=== PATIENT | female | born 1950 | race Caucasian/White ===

== ENCOUNTER 2020-04-26 13:24 | Emergency (ER) | payer MEDICARE, OTHER ==
--- NOTE | 2020-04-26 13:32 | ED Physician Documentation ---
<Umberto Diaz - Last Filed: 04/26/20 13:32> PD HPI FEMALE - Stated complaint Stated Complaint: FEMALE - History obtained from History obtained from: Patient PD PAST MEDICAL HISTORY - Past Medical History Cardiovascular: Murmur Endocrine/Autoimmune: None GI: GERD, Other : None HEENT: Other Psych: Depression, Anxiety Musculoskeletal: Fibromyalgia Derm: None - Present Medications Home Medications: Ambulatory Orders Medication Instructions Recorded Confirmed Fexofenadine HCl [Safia] 180 mg PO TID 09/22/13 04/26/20 Hydrocodone/Acetaminophen 1 - 2 each PO Q6H PRN #14 tablet 04/26/20 [Hydrocodon-Acetaminophen 5-325] Ondansetron [Ondansetron Odt] 8 mg PO Q8HR PRN 04/26/20 04/26/20 Zolpidem Tartrate [Ambien] 10 mg PO DAILY PM PRN 04/26/20 04/26/20 - Allergies Allergies/Adverse Reactions: Allergies Allergy/AdvReac Type Severity Reaction Status Date / Time Sulfa (Sulfonamide Allergy Intermediate Rash, Verified 04/26/20 13:29 Antibiotics) swelling, SOB ampicillin Allergy Rash, Verified 04/26/20 13:29 sweats aspirin Allergy swelling, Verified 04/26/20 13:29 shakes bacitracin Allergy Blisters, Verified 04/26/20 13:29 [From Neosporin pain (qzd-ptb-[id number])] bacitracin zinc * Allergy Blisters, Verified 04/26/20 13:29 [From Neosporin pain (foq-kci-tojte)] neomycin sulfate * Allergy Blisters, Verified 04/26/20 13:29 [From Neosporin pain (gws-znd-xykil)] polymyxin B Allergy Blisters, Verified 04/26/20 13:29 [From Neosporin pain (bxa-yke-krkkc)] amoxicillin [Amoxicillin] AdvReac Mild Nausea Verified 04/26/20 13:29 alcohol AdvReac sweats, Verified 04/26/20 13:29 shakes caffeine AdvReac rash, Verified 04/26/20 13:29 burning soy AdvReac rash, Verified 04/26/20 13:29 burning citrus AdvReac Intermediate rash, Uncoded 09/23/13 08:38 burning tape AdvReac Rash Uncoded 09/22/13 14:30 Departure - Departure Disposition: 01 Home, Self Care Clinical Impression: Pelvic floor dysfunction, Uterine prolapse, Bladder prolapse Condition: Good Instructions: Pelvic Organ Prolapse Follow-Up: [facility] [Provider Group] - Within 3 Days Prescriptions: Hydrocodone/Acetaminophen [Hydrocodon-Acetaminophen 5-325] 1 - 2 each PO Q6H PRN #14 tablet PRN Reason: pain Comments: I spoke with Dr. Landry rod, she states that you can use Replens, this is an cwei-iwh-kjchspa vaginal lubricant and that this will help with the discomfort. We will prescribe you pain medication as well. She recommends that you follow-up in clinic to be fitted for a pessary and to discuss possible surgical treatment. Return if you worsen Do not drink alcohol or drive while on narcotic pain medicine. Note that many narcotic pain relievers also contain tylenol/acetaminophen. Please ensure that your total dose of acetaminophen from all sources does not exceed 3 grams (3000mg) per day. You may constipated on this medication, take a stool softener such as "Colace" twice a day while you are on it. Also recommend a omez-cvf-gslqlni laxative such as senna or MiraLAX any day that you do not have a bowel movement. If you received narcotic pain medication in the emergency department, do not drive or operate machinery for the next 24 hours. Discharge Date/Time: 04/26/20 18:02 <Renny Berumen - Last Filed: 04/26/20 22:06> PD HPI FEMALE - History obtained from History obtained from: Patient - History of Present Illness Timing - onset: How many weeks ago Timing - duration: Weeks Timing - details: Gradual onset Pain level max: 4 Pain level max: 4 Associated symptoms: Vaginal pain - Additional information Additional information: 70-year-old female presents to the emergency department stating that she has had "something coming out of her vagina" for the past several weeks. She states that now tian and is worse sitting. No dysuria. She does feel like sometimes it is hard to empty her bladder. No vaginal bleeding. Has not seen her doctor for this. She states it feels like there is a finger coming out of her vagina. Review of Systems Constitutional: denies: Fever, Chills GI: denies: Vomiting, Diarrhea Skin: denies: Rash Musculoskeletal: denies: Neck pain, Back pain Neurologic: denies: Headache PD PAST MEDICAL HISTORY - Past Medical History Past Medical History: Yes Cardiovascular: Murmur Endocrine/Autoimmune: None GI: GERD : None Psych: Depression, Anxiety Musculoskeletal: Fibromyalgia Derm: None - Living Situation Living Situation: reports: With family Living Arrangement: reports: At home - Social History Does the pt have substance abuse?: No - Family History Family history: reports: Non contributory PD ED PE NORMAL - Vitals Vital signs reviewed: Yes - General General: Alert and oriented X 3, No acute distress - HEENT HEENT: Moist mucous membranes - Neck Neck: Supple, no meningeal sign - Female Female : Assistant Front End Manager present (Zara FUCHS), Other (low cervix, prolapses with standing. bladder appears to prolapse as well.) - Back Back: No CVA TTP - Derm Derm: Warm and dry - Neuro Neuro: Alert and oriented X 3 - Psych Psych: Normal mood, Normal affect Results - Vitals Vitals: Vital Signs - 24 hr 04/26/20 04/26/20 04/26/20 13:30 15:51 17:48 Temperature 37.4 C 37 C 37.1 C Heart Rate 126 H 100 75 Respiratory 20 18 16 Rate Blood Pressure 139/66 H 141/81 H O2 Saturation 100 98 99 Oxygen O2 Source Room air - Labs Labs: Laboratory Tests 04/26/20 17:40 Urine Color YELLOW Urine Clarity N Urine pH 6.0 Ur Specific [place] <=1.005 Urine Protein NEGATIVE Urine Glucose (UA) NEGATIVE Urine Ketones NEGATIVE Urine Occult Blood TRACE-INTA Urine Nitrite NEGATIVE Urine Bilirubin NEGATIVE Urine Urobilinogen 0.2 (NORMAL) Ur Leukocyte Esterase NEGATIVE Ur Microscopic Review NOT INDICATED Urine Culture Comments NOT INDICATED PD MEDICAL DECISION MAKING - ED course Complexity details: reviewed results, re-evaluated patient, considered differential, d/w patient, d/w family, d/w senior billing consultant ED course: Patient with a uterine prolapse. Likely bladder prolapse as well. No acute findings on urinalysis. Discussed the case with Dr. Alatorre, gynecology on- call who recommends follow-up in the clinic for a pessary. We will prescribe some pain medication for home and encouraged her to use vaginal lubrication so the cervix does not become dried out and painful. Patient counseled regarding signs and symptoms for which I believe and urgent re-evaluation would be necessary. Patient with good understanding of and agreement to plan and is comfortable going home at this time This document was made in part using voice recognition software. While efforts are made to proofread this document, sound alike and grammatical errors may occur.
[2020-04-26 15:51] VITALS: BP 141/81
[2020-04-26] MEDS ORDERED: HYDROcod/ACETAM 5/325 MG TABLET PO STA (17:35)
[2020-04-26 17:50] LABS: BILIRUBIN,URINE NEGATIVE (NEGATIVE); GLUCOSE, URINE (UA) NEGATIVE (NEGATIVE); KETONES,URINE (UA) NEGATIVE (NEGATIVE); LEUKOCYTE ESTERASE, URINE NEGATIVE (NEGATIVE); NITRITE,URINE NEGATIVE (NEGATIVE); OCCULT BLOOD,URINE TRACE-INTA (NEGATIVE); PROTEIN,URINE NEGATIVE (NEGATIVE); UROBILINOGEN,URINE 0.2 (NORMAL) E.U./dL (NORMAL)
[2020-04-26 17:53] LABS: CLARITY,URINE N (CLEAR)
== END 2020-04-26 18:02 | disposition home or self-care (01) ==
LOC: ED 13:24
DX: N81.84 Pelvic muscle wasting (principal); N81.4 Uterovaginal prolapse, unspecified
CPT/HCPCS: 81003; 99283; 99284; A9270; 81001; 87086

== ENCOUNTER 2020-06-23 12:59 | Outpatient (CLI) | payer MEDICARE, OTHER ==
--- NOTE | 2020-06-24 06:36 | Mammography Report ---
BILATERAL DIGITAL SCREENING MAMMOGRAM 3D/2D: 06/23/2020 CLINICAL: Routine screening. Comparison is made to exams dated: 12/30/2013 mammogram, 09/23/2013 localization, 09/23/2013 mammogra m, 01/14/2013 mammogram, 01/20/2013 mammogram, and 12/19/2012 mammogram - [facility]. Th e tissue of both breasts is heterogeneously dense. This may lower the sensitivity of mammography. There is an oval focal asymmetry in the right breast central to the nipple posterior depth. No other significant masses, calcifications, or other findings are seen in either breast. IMPRESSION: INCOMPLETE: NEEDS ADDITIONAL IMAGING EVALUATION The oval focal asymmetry in the right breast likely represents a cyst and is indeterminate. Addition al views with possible ultrasound are recommended. This exam was interpreted at Station ID: [id number]. NOTE: For mammograms, a report in lay terms will be sent to the patient. Approximately 15% of breast malignancies will not be visualized mammographically. In the management of a palpable breast mass, a negative mammogram must not discourage biopsy of a clinically suspicious lesion. Electronically Signed By: Albertina Nuñez M.D. lk/:06/23/2020 14:12:41 ACR BI-RADS Category 0: Incomplete 3340F PARENCHYMAL PATTERN: (D) - The breast(s) demonstrate(s) heterogeneously dense fibroglandular parchristianne rogel. BI-RADS CATEGORY: (0) - 0 Mammo and [place] [id number] Immediate follow-up LATERALITY: (B)
== END 2020-06-23 13:00 | disposition home or self-care (01) ==
LOC: DI 12:59
PROVIDERS: ATTEND Obstetrics & Gynecology
DX: Z12.31 Encounter for screening mammogram for malignant neoplasm of breast (principal); R92.8 Other abnormal and inconclusive findings on diagnostic imaging of breast
CPT/HCPCS: 77063; 77067

== ENCOUNTER 2020-06-23 13:00 | Outpatient (CLI) | payer MEDICARE, OTHER ==
--- NOTE | 2020-06-23 16:51 | DEXA Report ---
PROCEDURE: Dexa Spine and/or Hip INDICATIONS: POSTMENOPAUSAL TECHNIQUE: Dual energy x-ray absorptiometry (DXA) was performed on a Klinq System. Regions measur ed are the AP Spine, femoral neck, and if needed forearm. COMPARISON: None. FINDINGS: Lumbar Spine: Bone Mineral Density 0.978 g/cm/cm,T score -1.7, osteopenia Left Hip: Bone Mineral Density 0.687 g/cm/cm,T score -2.5, osteoporosis Left Femoral Neck: Bone Mineral Density 669 g/cm/cm, T score -2.7, osteoporosis (T score greater or equal to -1.0: NORMAL) (T score from -1.1 to -2.4: OSTEOPENIA) (T score less than or equal to -2.5 to: OSTEOPOROSIS) Impression: Osteoporosis. Patients with diagnosis of osteoporosis or osteopenia should have regular bone mineral density assess ment. For those eligible for Medicare, routine testing is allowed once every 2 years. Testing frequ ency can be increased for patients who have rapidly progressing disease or for those who are receivin g medical therapy to restore bone mass. Reviewed by: Denise Grant MD, PhD on 06/23/2020 4:50 PM PDT Approved by: Denise Grant MD, PhD on 06/23/2020 4:50 PM PDT Station ID: [id number]
== END 2020-06-23 13:01 | disposition home or self-care (01) ==
LOC: DI 13:00
PROVIDERS: ATTEND Obstetrics & Gynecology
DX: M81.0 Age-related osteoporosis without current pathological fracture (principal)
CPT/HCPCS: 77080

== ENCOUNTER 2022-10-23 08:00 | Outpatient (CLI) | payer MEDICARE, OTHER ==
[2022-10-23 16:51] LABS: BASOPHILS # (AUTO) 0.1 10^3/uL (0.0-0.1); BASOPHILS % (AUTO) 0.7 %; EOSINOPHILS % (AUTO) 0.2 %; HCT - HEMATOCRIT 41.4 % (37.0-47.0); HGB - HEMOGLOBIN 13.3 g/dL (12.0-16.0); LYMPHOCYTES # (AUTO) 3.4 10^3/uL (1.5-3.5); LYMPHOCYTES % (AUTO) 40.6 %; MEAN CORPUSCULAR HEMOGLOBIN 29.6 pg (27.0-31.0); MEAN CORPUSCULAR HGB CONC 32.1 g/dL (32.0-36.0); MEAN CORPUSCULAR VOLUME 92.2 fL (81.0-99.0); MONOCYTES # (AUTO) 0.4 10^3/uL (0.0-1.0); MONOCYTES % (AUTO) 4.9 %; NEUTROPHILS # (AUTO) 4.4 10^3/uL (1.5-6.6); NEUTROPHILS % (AUTO) 53.4 %; PLT - PLATELET COUNT 245 10^3/uL (130-450); RED BLOOD COUNT 4.49 10^6/uL (4.20-5.40); RED CELL DISTRIBUTION WIDTH 13.4 % (12.0-15.0); WHITE BLOOD COUNT 8.3 x10^3/uL (4.8-10.8)
[2022-10-23 17:02] LABS: ALBUMIN/GLOBULIN RATIO 1.1 (1.0-2.2); ALKALINE PHOSPHATASE 64 IU/L (42-121); ALT ALANINE AMINOTRANSFERASE 13 IU/L (10-60); AST ASPARTATE AMINOTRANSFERASE 18 IU/L (10-42); BILIRUBIN,TOTAL 0.6 mg/dL (0.2-1.0); BUN - BLOOD UREA NITROGEN 16 mg/dL (6-20); CALCIUM 9.5 mg/dL (8.5-10.3); CARBON DIOXIDE - CO2 26 mmol/L (21-32); CHLORIDE 101 mmol/L (101-111); CHOL/HDL RATIO 3.1 (<4.4); CHOLESTEROL 217 mg/dL; CREATININE 0.7 mg/dL (0.4-1.0); GFR - MDRD 82 (>89); GLUCOSE 106 mg/dL (70-100); HDL CHOLESTEROL 71 mg/dL; LDL CHOLESTEROL,CALCULATED 126 mg/dL; LDL/HDL RATIO 1.8 (<4.4); SODIUM 136 mmol/L (135-145); TOTAL PROTEIN 7.7 g/dL (6.7-8.2); TRIGLYCERIDES 100 mg/dL; VLDL CHOLESTEROL 20 mg/dL
[2022-10-23 17:15] LABS: THYROID STIMULATING HORMONE 1.03 uIU/mL (0.34-5.60)
[2022-10-24 05:10] LABS: HCV AB 0.1 s/co ratio (0.0-0.9)
[2022-10-24 21:10] LABS: ESTIMATED AVERAGE GLUCOSE 126 mg/dL (70-100)
== END 2022-10-23 23:59 | disposition home or self-care (01) ==
LOC: LAB.R 08:00
PROVIDERS: ATTEND Internal Medicine
DX: H35.30 Unspecified macular degeneration (principal); F41.9 Anxiety disorder, unspecified; H26.9 Unspecified cataract; G93.32 Myalgic encephalomyelitis/chronic fatigue syndrome; K59.00 Constipation, unspecified; K04.7 Periapical abscess without sinus; L98.9 Disorder of the skin and subcutaneous tissue, unspecified; M79.7 Fibromyalgia; K21.9 Gastro-esophageal reflux disease without esophagitis; G47.00 Insomnia, unspecified; K58.9 Irritable bowel syndrome, unspecified; J45.909 Unspecified asthma, uncomplicated; H33.20 Serous retinal detachment, unspecified eye; Z13.6 Encounter for screening for cardiovascular disorders; Z11.59 Encounter for screening for other viral diseases; Z79.899 Other long term (current) drug therapy; R73.01 Impaired fasting glucose
CPT/HCPCS: 80053; 80061; 82607; 83036; 83721; 84443; 85025; 86803

== ENCOUNTER 2022-11-27 10:36 | Outpatient (CLI) | payer MEDICARE, OTHER ==
--- NOTE | 2022-11-28 12:42 | Mammography Report ---
BILATERAL DIGITAL DIAGNOSTIC MAMMOGRAM 3D/2D: 11/27/2022 CLINICAL: Right breast cyst? Due for left. Comparison is made to exams dated: 06/23/2020 mammogram, 12/30/2013 mammogram, 09/23/2013 mammogram, an d 01/20/2013 mammogram - [facility]. There are scattered areas of fibroglandular density in both breasts (category b / 25%-50% glandular t issue). There is an oval focal asymmetry in the right breast at 6 o'clock middle depth. This is not signific antly changed. No other significant masses, calcifications, or other findings are seen in either breast. Post-operat bindu finding in the left breast. IMPRESSION: INCOMPLETE: NEEDS ADDITIONAL IMAGING EVALUATION The oval focal asymmetry in the right breast likely represents a cyst and is indeterminate. A targeted ultrasound is recommended and will immediately follow. Based on the Tyrer Cuzick model (a risk assessment model) the patients lifetime risk is 7.4% and her 10 year risk is 5.5%. According to the ACR, ACS, and NCCN guidelines, an annual breast MRI exam willie g with mammogram is recommended if the patients lifetime risk is 20% or greater. This exam was interpreted at Station ID: [id number]. NOTE: For mammograms, a report in lay terms will be sent to the patient. Approximately 15% of breast malignancies will not be visualized mammographically. In the management of a palpable breast mass, a negative mammogram must not discourage biopsy of a clinically suspicious lesion. Electronically Signed By: Axel Lloyd M.D. slc/:11/27/2022 11:31:47 ACR BI-RADS Category 0: Incomplete 3340F PARENCHYMAL PATTERN: (A) - The breast(s) demonstrate(s) scattered fibroglandular densities. BI-RADS CATEGORY: (0) - 0 Ultrasound [id number] Immediate follow-up LATERALITY: (R)
--- NOTE | 2022-11-28 12:43 | Ultrasound Report ---
LIMITED ULTRASOUND OF RIGHT BREAST: 11/27/2022 CLINICAL: Patient returns today to evaluate a focal asymmetry in the right breast. Comparison is made to exams dated: 11/27/2022 mammogram, 06/23/2020 mammogram, 12/30/2013 mammogram, 07/2013 mammogram, 01/20/2013 mammogram, and 01/14/2013 mammogram - [facility]. Color flow ultrasound of the right breast 6 o'clock region was performed. Puckett scale images of the r eal-time examination were reviewed. There is a 1.1 cm x 0.6 cm x 0.6 cm oval mass with a circumscribed margin in the right breast at 6 o' clock middle depth 6 cm from the nipple. This oval mass is hypoechoic. This abnormality is not sign ificantly changed and correlates with mammography findings. Color flow imaging demonstrates that the re is no vascularity present. IMPRESSION: PROBABLY BENIGN The 1.1 cm oval mass in the right breast resembles a complicated cyst or a fibroadenoma and is probab ly benign. A follow-up mammogram and an ultrasound in 6 months is recommended to demonstrate stability. Exam findings were conveyed to the patient. This exam was interpreted at Station ID: [id number]. Electronically Signed By: Axel Lloyd M.D. [facility] [place]:11/27/[place]22 12:25:07 Ultrasound BI-RADS: 3 Probably benign BI-RADS CATEGORY: (3) - 3 Mammo and [place] [id number] 6 month follow-up LATERALITY: (B)
== END 2022-11-27 10:37 | disposition home or self-care (01) ==
LOC: DI 10:36
PROVIDERS: ATTEND Internal Medicine
DX: R92.8 Other abnormal and inconclusive findings on diagnostic imaging of breast (principal)

== ENCOUNTER 2023-08-02 09:12 | Day surgery (SDC) | payer MEDICARE, OTHER ==
[~2023-08-02 09:12] MED LIST: CYCLOPENTOLATE 1% OPHTH DROPS 2 ML ONE; KETOROLAC 0.45% OPHTH DROPS ONE; PHENYLEPHRINE 2.5% OPHTH 2 ML DROPS ONE; PROPARACAINE 0.5% OPHTH DROPS 15 ML ONE
[2023-08-02] MEDS ORDERED: LACTATED RINGERS 1,000 ML IV ONE (09:16)
[2023-08-02 09:30] VITALS: O2SAT 98
--- NOTE | 2023-08-02 10:18 | ANESTHESIA ---
Pre-Anesthesia VS, & Labs - Diagnosis R cataract - Procedure R PhacIOL Vital Signs: Temp Pulse Resp BP Pulse Ox O2 Flow Rate 36.3 C L 102 H 16 141/86 H 98 08/02/23 09:27 08/02/23 09:27 08/02/23 09:27 08/02/23 09:27 08/02/23 09:27 Height: 5 ft 4 in Weight (kg): 65 kg Body Mass Index: 24.5 BMI Classification: Normal - NPO >8 hours - Is Patient ?: No Home Medications and Allergies Home Medications: Ambulatory Orders Albuterol Sulf [Ventolin Hfa Inhaler] 1 - 2 puffs INH Q4HR PRN 08/01/23 Fluticasone Propion/Salmeterol [Airduo Digihaler 232-14 Mcg] 1 each IH DAILY 08/01/23 Gabapentin [Neurontin] 300 mg PO HS 08/01/23 Fexofenadine HCl [Safia] 180 mg PO TID 09/22/13 Ondansetron [Ondansetron Odt] 8 mg PO Q8HR PRN 04/26/20 Albuterol Sulf [Ventolin Hfa Inhaler] 1 - 2 puffs INH Q4HR PRN 08/01/23 Fluticasone Propion/Salmeterol [Airduo Digihaler 232-14 Mcg] 1 each IH DAILY 08/01/23 Gabapentin [Neurontin] 300 mg PO HS 08/01/23 Allergies/Adverse Reactions: Allergies Allergy/AdvReac Type Severity Reaction Status Date / Time Sulfa (Sulfonamide Allergy Intermediate Rash, Verified 04/26/20 13:29 Antibiotics) swelling, SOB ampicillin Allergy Rash, Verified 04/26/20 13:29 sweats aspirin Allergy swelling, Verified 04/26/20 13:29 shakes bacitracin Allergy Blisters, Verified 04/26/20 13:29 [From Neosporin pain (klk-dsr-btunt)] bacitracin zinc * Allergy Blisters, Verified 04/26/20 13:29 [From Neosporin pain (woc-pwd-ufrdv)] neomycin sulfate * Allergy Blisters, Verified 04/26/20 13:29 [From Neosporin pain (rrf-jaq-cgsyf)] polymyxin B Allergy Blisters, Verified 04/26/20 13:29 [From Neosporin pain (cqm-odx-toasp)] amoxicillin [Amoxicillin] AdvReac Mild Nausea Verified 04/26/20 13:29 alcohol AdvReac sweats, Verified 04/26/20 13:29 shakes caffeine AdvReac rash, Verified 04/26/20 13:29 burning soy AdvReac rash, Verified 04/26/20 13:29 burning citrus AdvReac Intermediate rash, Uncoded 09/23/13 08:38 burning tape AdvReac Rash Uncoded 09/22/13 14:30 Anes History & Medical History - Anesthetic History Anesthesia Complications: reports: No previous complications Family history of Anesthesia Complications: Denies Family history of Malignant Hyperthermia: Denies - Medical History Cardiovascular: reports: Murmur Pulmonary: reports: Asthma Gastrointestinal: reports: GERD Urinary: reports: None Neuro: reports: None Musculoskeletal: reports: Fibromyalgia Endocrine/Autoimmune: reports: None Blood Disorders: reports: None Skin: reports: None Smoking Status: Former smoker Psychosocial: reports: Depression, Anxiety History of Cancer?: Yes (breast) - Surgical History Gynecologic: reports: Other Exam General: Alert, Oriented x3, Cooperative Dental: Poor dentition (very poor dentition. pt states "I only have 5 teeth left and they are all loose and about to come out") Mouth Openin Fingerbreadth Neck Mobility: Normal Mallampati classification: II Thyromental Distance: 4-6 cm Respiratory: Lungs clear Cardiovascular: Regular rate Plan Anesthesia Type: General (MAC with GA backup), MAC Consent for Procedure(s) Verified and Reviewed: Yes Code Status: Attempt Resuscitation ASA classification: 3-Severe systemic disease Is this case an emergency?: No
[2023-08-02] MEDS ORDERED: EPINEPHrine 1 MG/ML AMP ONE (10:28)
[2023-08-02] MEDS ORDERED: TRIAMCIN/MOXIFLOX OPHTHALMIC 0.6 ML VIAL IO ONE ×2 (10:28→10:46)
[2023-08-02] MEDS ORDERED: BRIMONIDINE 0.2% OPHTH DROPS 5 ML ONE (10:28)
[2023-08-02] MEDS ORDERED: MIDAZOLAM 2 MG/2 ML VIAL ONE (10:29)
[2023-08-02] MEDS ORDERED: fentaNYL 100 MCG/2 ML VIAL ONE (10:29)
[2023-08-02] MEDS ORDERED: BSS/LIDOCAINE/EPINEPHRINE 1 ML VIAL ONE (10:29)
[2023-08-02] MEDS ORDERED: TIMOLOL 0.5% OPHTH DROPS ONE (10:29)
[2023-08-02] MEDS ORDERED: LIDOCAINE-PF 2% 10 ML AMP SUBQ ONE (10:30)
[2023-08-02] MEDS ORDERED: BRIMONIDINE 0.2% OPHTH DROPS 5 ML OPTH ONE (10:45)
[2023-08-02] MEDS ORDERED: EPINEPHrine 1 MG/ML AMP IR ONE (10:46)
[2023-08-02] MEDS ORDERED: TIMOLOL 0.5% OPHTH DROPS OPTH ONE (10:46)
[2023-08-02] MEDS ORDERED: BSS/LIDOCAINE/EPINEPHRINE 1 ML SYRINGE IO ONE (10:46)
[2023-08-02] MEDS ORDERED: PROPARACAINE 0.5% OPHTH DROPS 15 ML RIGHTEYE ONE (10:46)
[2023-08-02] MEDS ORDERED: VANCOMYCIN OPHTH (TOPICAL) 10 MG/ML SYRINGE TOP ONE (10:46)
[2023-08-02] MEDS ORDERED: LACTATED RINGERS 500 ML IV ONE (10:59)
--- NOTE | 2023-08-02 11:07 | OPERATIVE REPORT ---
Operative Report - Other Other Information/Narrative: Date of Surgery: 08/02/23 Preop Dx: Visually significant cataract right eye. This was the first cataract surgery. Postop Dx: Same Procedure: Phacoemulsification with posterior chamber intraocular lens implant right eye Surgeon: Dr. Donnie Horn Anesthesia: Monitored anesthesia care Complications: None Operative Indications: This is a 73-year-old F with progressive vision loss in the right eye due to 2-3+ nuclear sclerotic and 3+ cortical cataract. Best corrected visual acuity was 20/40 with glare to hand motion vision in the right eye. Indications for surgery were: - Overall decrease in vision - Difficulty seeing words on a computer screen - Difficulty reading - Difficulty seeing words, closed captions, or game scores on TV - Difficulty seeing street signs - Difficulty driving in low light or at night - Difficulty driving at night because of headlights from other vehicles - Difficulty with glare or bright lights in any situation The patient was consented at length concerning the risks and benefits of cataract surgery after which the patient expressed a desire to proceed with surgery. Operative Procedure: The patient was taken into OR#3 and placed under monitored anesthesia care. A surgical time-out was conducted confirming correct patient, correct procedure, and correct surgical site. The patient was given topical anesthesia and then prepped and draped in the usual sterile fashion. The eye was entered at the 6 and 3 oclock positions. Intracameral Shugarcaine was injected into the anterior chamber followed by a dispersive viscoelastic. A continuous-tear curvilinear capsulorhexis was performed. The nucleus was hydrodissected and phacoemulsified. The cortex was evacuated using automated infusion and aspiration. A cohesive viscoelastic was injected into the capsular bag and a 21.5 diopter intraocular lens was inserted into the bag. Infusion and aspiration were used to evacuate the viscoelastic materials from the eye. The wounds were hydrated and the eye inflated to physiologic pressure using balanced salt solution. Approximately 0.25ml of a mixture of triamcinolone and moxifloxacin was injected trans-sclerally into the vitreous in the inferotemporal quadrant using a 30 gauge cannula. An additional 0.25ml of a mixture of triamcinolone and moxifloxacin was injected subconjunctivally in the superior quadrant for infection and inflammation prophylaxis. Wound integrity was checked with Weck-Carmen sponges. The patient was taken from the operating room in good condition and given post-op instructions.
[2023-08-02 11:37] VITALS: BP 130/60
--- NOTE | 2023-08-02 12:04 | ANESTHESIA POST OP EVALUATION ---
Anesthesia Post Eval - Post Anesthesia Eval Vitals: Last Vital Signs Temp 36.3 C L 08/02/23 11:30 Pulse 84 08/02/23 11:30 Resp 16 08/02/23 11:30 BP 130/60 08/02/23 11:30 Pulse Ox 98 08/02/23 11:30 O2 Flow Rate CV Function Including HR & BP: Stable Pain Control: Satisfactory Nausea & Vomiting: Negative Mental Status: Baseline Respiratory Status: Airway Patent Hydration Status: Satisfactory Anesthesia Complications: None
== END 2023-08-02 09:13 | disposition home or self-care (01) ==
LOC: SDS 09:12
PROVIDERS: ATTEND Ophthalmology
DX: H25.811 Combined forms of age-related cataract, right eye (principal); Z79.899 Other long term (current) drug therapy; F41.9 Anxiety disorder, unspecified; J44.9 Chronic obstructive pulmonary disease, unspecified; Z87.891 Personal history of nicotine dependence
CPT/HCPCS: 66984; A9270; J3490; J7120

== ENCOUNTER 2023-08-15 15:23 | Outpatient (CLI) | payer MEDICARE, OTHER | END 2023-08-15 23:59 | disposition critical access hospital (66) | LOC: EMS 15:23 | DX: R09.89 Other specified symptoms and signs involving the circulatory and respiratory systems (principal); R13.10 Dysphagia, unspecified; R11.0 Nausea | CPT/HCPCS: A0425; A0429 ==

== ENCOUNTER 2023-08-15 15:52 | Emergency (ER) | payer MEDICARE, OTHER ==
--- NOTE | 2023-08-15 17:11 | ED Physician Documentation ---
History of Present Illness - Stated complaint Stated Complaint: CHOKING - Chief complaint Chief Complaint: General - History obtained from History obtained from: Patient - History of Present Illness Timing: Today - Additonal information Additional information: Maura Bang is a 73-year-old female who has had some difficulty with food getting stuck in her esophagus for years. She usually is able to get this to pass and sometimes she will vomit and it will come back up. She has usually had this happen with chips and she will allow them to essentially melt and they will pass. Today she was eating a raw apple and this got stuck and she has been choking on this periodically feeling like it is cutting off her airway. She has turned herself up to the side down and she has choked coughed and vomited all without relief.She has not been evaluated previously for esophageal stricture. Review of Systems Constitutional: denies: Fever Eyes: denies: Decreased vision Ears: denies: Ear pain Nose: denies: Congestion Throat: denies: Sore throat Cardiac: denies: Chest pain / pressure Respiratory: denies: Dyspnea, Cough GI: reports: Nausea, Vomiting. 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 HEENT: Cataracts - Present Medications Home Medications: Ambulatory Orders Medication Instructions Recorded Confirmed Fexofenadine HCl [Safia] 180 mg PO TID 09/22/13 08/15/23 Ondansetron [Ondansetron Odt] 8 mg PO Q8HR PRN 04/26/20 08/15/23 Zolpidem Tartrate [Ambien] 10 mg PO QPM PRN #60 tablet 12/16/20 08/15/23 Albuterol Sulf [Ventolin Hfa 1 - 2 puffs INH Q4HR PRN 08/01/23 08/15/23 Inhaler] Fluticasone Propion/Salmeterol 1 each IH DAILY 08/01/23 08/15/23 [Airduo Digihaler 232-14 Mcg] Gabapentin [Neurontin] 300 mg PO HS 08/01/23 08/15/23 - Allergies Allergies/Adverse Reactions: Allergies Allergy/AdvReac Type Severity Reaction Status Date / Time Sulfa (Sulfonamide Allergy Intermediate Rash, Verified 08/15/23 15:56 Antibiotics) swelling, SOB ampicillin Allergy Rash, Verified 08/15/23 15:56 sweats aspirin Allergy swelling, Verified 08/15/23 15:56 shakes bacitracin Allergy Blisters, Verified 08/15/23 15:56 [From Neosporin pain ([id number])] bacitracin zinc * Allergy Blisters, Verified 08/15/23 15:56 [From Neosporin pain ([id number])] neomycin sulfate * Allergy Blisters, Verified 08/15/23 15:56 [From Neosporin pain ([id number])] polymyxin B Allergy Blisters, Verified 08/15/23 15:56 [From Neosporin pain ([id number]-aor-[id number])] amoxicillin [Amoxicillin] AdvReac Mild Nausea Verified 08/15/23 15:56 alcohol AdvReac sweats, Verified 08/15/23 15:56 shakes caffeine AdvReac rash, Verified 08/15/23 15:56 burning soy AdvReac rash, Verified 08/15/23 15:56 burning citrus AdvReac Intermediate rash, Uncoded 08/15/23 15:56 burning tape AdvReac Rash Uncoded 08/15/23 15:56 - Social History Does the pt smoke?: No Smoking Status: Never smoker Does the pt drink ETOH?: No Does the pt have substance abuse?: No - Immunizations Immunizations are current?: Yes PD ED PE NORMAL - Vitals Vital signs reviewed: Yes (hypertensive) - General General: Alert and oriented X 3, Well developed/nourished, Other (pauses occasionally to wretch or to swallow and this appears painful ) - HEENT HEENT: Atraumatic, PERRL, EOMI, Moist mucous membranes, Pharynx benign, Other (I am able to look deep into the pharynx with cooperation from the patient. 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, No motor deficit, No sensory deficit, Normal speech Eye Opening: Spontaneous Motor: Obeys Commands Verbal: Oriented GCS Score: 15 - Psych Psych: Normal mood, Normal affect Results - Vitals Vitals: Vital Signs - 24 hr 08/15/23 08/15/23 08/15/23 15:56 16:39 17:19 Temperature 36.8 C 36.8 C Heart Rate 100 93 88 Respiratory 16 17 16 Rate Blood Pressure 144/80 H 158/87 H 140/86 H O2 Saturation 100 97 98 Oxygen O2 Source Room air PD Medical Decision Making - ED course Complexity details: considered differential, d/w patient ED course: This 73-year-old female presents with esophageal foreign body impaction which she has not been able to cough up vomit up or swallow. She appears to be having pain when she swallows. We attempted a swallow of cola and the patient felt that this made things somewhat better but she really was discussed by the taste of the cola and we instead used some Sprite and the patient was able to swallow this and felt the passage of the foreign body. We are able to discharge the patient home. Departure - Departure Disposition: 01 Home, Self Care Clinical Impression: Impacted esophageal foreign body Qualifiers: Encounter type: initial encounter Qualified Code(s): T18.108A - Unspecified foreign body in esophagus causing other injury, initial encounter Condition: Stable Instructions: ED Foreign Body Esophageal Rslv Follow-Up: Erika Mendez MD [Primary Care Provider] - Comments: Maura, today it looks like the apple you got stuck in your esophagus has resolved. This usually indicates that there is a stricture in the esophagus and since it sounds by history like you have had trouble getting things stuck a number of times a repair of this is indicated. This is usually done by the casing worker and usually has to be repeated every few years. Talk to Dr. Mendez about a referral to gastroenterology. Discharge Date/Time: 08/15/23 17:19
[2023-08-15 17:24] VITALS: BP 140/86; O2SAT 98
== END 2023-08-15 17:19 | disposition home or self-care (01) ==
LOC: EDUNIT# → ED 15:52
DX: T18.128A Food in esophagus causing other injury, initial encounter (principal); W44.F3XA Food entering into or through a natural orifice, initial encounter; Z79.899 Other long term (current) drug therapy
CPT/HCPCS: 99283

== ENCOUNTER 2023-09-20 09:43 | Day surgery (SDC) | payer MEDICARE, OTHER ==
[~2023-09-20 09:43] MED LIST changes: -CYCLOPENTOLATE 1% OPHTH DROPS 2 ML ONE
[2023-09-20] MEDS ORDERED: CYCLOPENTOLATE 1% OPHTH DROPS 2 ML LEFTEYE ONE (10:08)
[2023-09-20] MEDS ORDERED: LACTATED RINGERS 1,000 ML IV ONE ×2 (10:25→12:15)
--- NOTE | 2023-09-20 10:59 | ANESTHESIA ---
Pre-Anesthesia VS, & Labs - Diagnosis left eye senile combined cataract - Procedure left eye cataract extraction with IOL implant Vital Signs: Temp Pulse Resp BP Pulse Ox O2 Flow Rate 36.2 C L 78 16 132/74 H 98 09/20/23 09:54 09/20/23 09:54 09/20/23 09:54 09/20/23 09:54 09/20/23 09:54 Height: 5 ft 4 in Weight (kg): 67 kg Body Mass Index: 25.3 BMI Classification: Overweight - NPO >8 hours - Is Patient ?: No Home Medications and Allergies Fexofenadine HCl [Safia] 180 mg PO TID 09/22/13 Ondansetron [Ondansetron Odt] 8 mg PO Q8HR PRN 04/26/20 Albuterol Sulf [Ventolin Hfa Inhaler] 1 - 2 puffs INH Q4HR PRN 08/01/23 Fluticasone Propion/Salmeterol [Airduo Digihaler 232-14 Mcg] 1 each IH DAILY 08/01/23 Gabapentin [Neurontin] 300 mg PO HS 08/01/23 Allergies/Adverse Reactions: Allergies Allergy/AdvReac Type Severity Reaction Status Date / Time Sulfa (Sulfonamide Allergy Intermediate Rash, Verified 09/19/23 13:40 Antibiotics) swelling, SOB ampicillin Allergy Rash, Verified 09/19/23 13:40 sweats aspirin Allergy swelling, Verified 09/19/23 13:40 shakes bacitracin Allergy Blisters, Verified 09/19/23 13:40 [From Neosporin pain (hne-dpi-[id number])] bacitracin zinc * Allergy Blisters, Verified 09/19/23 13:40 [From Neosporin pain (akq-via-lshuh)] neomycin sulfate * Allergy Blisters, Verified 09/19/23 13:40 [From Neosporin pain (gir-mhh-cdsom)] polymyxin B Allergy Blisters, Verified 09/19/23 13:40 [From Neosporin pain (raq-mep-[id number])] amoxicillin [Amoxicillin] AdvReac Mild Nausea Verified 09/19/23 13:40 alcohol AdvReac sweats, Verified 09/19/23 13:40 shakes caffeine AdvReac rash, Verified 09/19/23 13:40 burning soy AdvReac rash, Verified 09/19/23 13:40 burning citrus AdvReac Intermediate rash, Uncoded 09/19/23 13:40 burning tape AdvReac Rash Uncoded 09/19/23 13:40 Anes History & Medical History - Anesthetic History Anesthesia Complications: reports: No previous complications - Medical History Cardiovascular: reports: Murmur Pulmonary: reports: Asthma Gastrointestinal: reports: GERD Urinary: reports: None Neuro: reports: None Musculoskeletal: reports: Fibromyalgia Endocrine/Autoimmune: reports: None Blood Disorders: reports: None Skin: reports: None, Other Smoking Status: Former smoker Psychosocial: reports: Delusions, Anxiety, Cannabis (daily) History of Cancer?: Yes (breast) - Surgical History Eyes Ears Nose Throat (EENT): reports: Cataracts Gynecologic: reports: Other Exam General: Alert, Oriented x3, Cooperative, No acute distress Dental: Poor dentition Mouth Openin Fingerbreadth Mallampati classification: II Thyromental Distance: 4-6 cm Mental/Cognitive Status: Alert/Oriented X3, Normal for patient Plan Anesthesia Type: General, MAC Consent for Procedure(s) Verified and Reviewed: Yes Code Status: Attempt Resuscitation ASA classification: 3-Severe systemic disease Is this case an emergency?: No
[2023-09-20] MEDS ORDERED: MIDAZOLAM 2 MG/2 ML VIAL ONE (11:26)
[2023-09-20] MEDS ORDERED: fentaNYL 100 MCG/2 ML VIAL ONE (11:28)
[2023-09-20] MEDS ORDERED: BRIMONIDINE 0.2% OPHTH DROPS 5 ML ONE (11:40)
[2023-09-20] MEDS ORDERED: EPINEPHrine 1 MG/ML AMP ONE (11:40)
[2023-09-20] MEDS ORDERED: TRIAMCIN/MOXIFLOX OPHTHALMIC 0.6 ML VIAL IO ONE ×2 (11:40→12:06)
[2023-09-20] MEDS ORDERED: BSS/LIDOCAINE/EPINEPHRINE 1 ML VIAL ONE (11:41)
[2023-09-20] MEDS ORDERED: TIMOLOL 0.5% OPHTH DROPS ONE (11:41)
[2023-09-20] MEDS ORDERED: TIMOLOL 0.5% OPHTH DROPS OPTH ONE (12:04)
[2023-09-20] MEDS ORDERED: EPINEPHrine 1 MG/ML AMP IR ONE (12:04)
[2023-09-20] MEDS ORDERED: BRIMONIDINE 0.2% OPHTH DROPS 5 ML OPTH ONE (12:04)
[2023-09-20] MEDS ORDERED: BSS/LIDOCAINE/EPINEPHRINE 1 ML SYRINGE IO ONE (12:06)
[2023-09-20] MEDS ORDERED: PROPARACAINE 0.5% OPHTH DROPS 15 ML LEFTEYE ONE (12:07)
[2023-09-20] MEDS ORDERED: VANCOMYCIN OPHTH (TOPICAL) 10 MG/ML SYRINGE TOP ONE (12:07)
--- NOTE | 2023-09-20 12:15 | OPERATIVE REPORT ---
Operative Report - Other Other Information/Narrative: Date of Surgery: 09/20/23 Preop Dx: Visually significant cataract left eye. Cataract surgery was performed in the right eye on . Postop Dx: Same Procedure: Phacoemulsification with posterior chamber intraocular lens implant left eye Surgeon: Dr. Donnie Horn Anesthesia: Monitored anesthesia care Complications: None Operative Indications: This is a 73-year-old F with progressive vision loss in the left eye due to 2-3+ nuclear sclerotic and 3+ cortical cataract. Best corrected visual acuity was 20/50 with glare to 20/400 vision in the left eye. Indications for surgery were: - Overall decrease in vision - Difficulty seeing words on a computer screen - Difficulty reading - Difficulty seeing words, closed captions, or game scores on TV - Difficulty seeing street signs - Difficulty driving in low light or at night - Difficulty driving at night because of headlights from other vehicles - Difficulty with glare or bright lights in any situation The patient was consented at length concerning the risks and benefits of cataract surgery after which the patient expressed a desire to proceed with surgery. Operative Procedure: The patient was taken into OR#3 and placed under monitored anesthesia care. A surgical time-out was conducted confirming correct patient, correct procedure, and correct surgical site. The patient was given topical anesthesia and then prepped and draped in the usual sterile fashion. The eye was entered at the 6 and 3 oclock positions. Intracameral Shugarcaine was injected into the anterior chamber followed by a dispersive viscoelastic. A continuous-tear curvilinear capsulorhexis was performed. The nucleus was hydrodissected and phacoemulsified. The cortex was evacuated using automated infusion and aspiration. A cohesive viscoelastic was injected into the capsular bag and a 21.0 diopter intraocular lens was inserted into the bag. Infusion and aspiration were used to evacuate the viscoelastic materials from the eye. The wounds were hydrated and the eye inflated to physiologic pressure using balanced salt solution. Approximately 0.25ml of a mixture of triamcinolone and moxifloxacin was injected trans-sclerally into the vitreous in the inferotemporal quadrant using a 30 gauge cannula. An additional 0.25ml of a mixture of triamcinolone and moxifloxacin was injected subconjunctivally in the superior quadrant for infection and inflammation prophylaxis. Wound integrity was checked with Weck-Carmen sponges. The patient was taken from the operating room in good condition and given post-op instructions.
--- NOTE | 2023-09-20 12:31 | ANESTHESIA POST OP EVALUATION ---
Anesthesia Post Eval - Post Anesthesia Eval Vitals: Last Vital Signs Temp 36.2 C L 09/20/23 12:16 Pulse 88 09/20/23 12:16 Resp 14 09/20/23 12:16 BP 125/76 09/20/23 12:16 Pulse Ox 97 09/20/23 12:16 O2 Flow Rate CV Function Including HR & BP: Stable Pain Control: Satisfactory Nausea & Vomiting: Negative Mental Status: Baseline Respiratory Status: Airway Patent Hydration Status: Satisfactory Anesthesia Complications: None
[2023-09-20 12:40] VITALS: BP 118/76; O2SAT 99
== END 2023-09-20 09:44 | disposition home or self-care (01) ==
LOC: SDS 09:43
PROVIDERS: ATTEND Ophthalmology
DX: H25.812 Combined forms of age-related cataract, left eye (principal); J45.909 Unspecified asthma, uncomplicated; Z87.891 Personal history of nicotine dependence
CPT/HCPCS: 66984; A9270; J3490; J7120

== ENCOUNTER 2023-11-15 12:21 | Outpatient (CLI) | payer MEDICARE, OTHER ==
--- NOTE | 2023-11-15 15:55 | Ultrasound Report ---
LIMITED ULTRASOUND OF RIGHT BREAST: 11/15/2023 CLINICAL: Patient returns today to evaluate a focal asymmetry in the right breast. Comparison is made to exams dated: 11/15/2023 mammogram, 11/27/2022 ultrasound, 11/27/2022 mammogram, 06/23/2020 mammogram, 12/30/2013 mammogram, and 09/23/2013 localization - [facility]. Color flow and real-time ultrasound of the right breast 6 o'clock region were performed. Puckett scale images of the real-time examination were reviewed. There is a 1 cm x 0.6 cm x 0.8 cm oval mass with a circumscribed margin in the right breast at 6 o'cl ock middle depth 6 cm from the nipple. This abnormality is not significantly changed and correlates with mammography findings. IMPRESSION: PROBABLY BENIGN The 1 cm x 0.6 cm x 0.8 cm oval mass in the right breast is probably benign. Follow-up mammogram and ultrasound in 6 months is recommended. This exam was interpreted at Station ID: [id number]. Electronically Signed By: Jim Dubois M.D. lc/:11/15/2023 13:59:05 Ultrasound BI-RADS: 3 Probably benign BI-RADS CATEGORY: (3) - 3 Mammo and [place] [id number] 6 month follow-up LATERALITY: (B)
--- NOTE | 2023-11-15 15:55 | Mammography Report ---
BILATERAL DIGITAL DIAGNOSTIC MAMMOGRAM 3D/2D: 11/15/2023 CLINICAL: Patient returns for a 6 month follow up of the right breast, due for bilateral exam. Comparison is made to exams dated: 06/23/2020 mammogram, 11/27/2022 mammogram, and 12/30/2013 mammogram - [facility]. There are scattered areas of fibroglandular density in both breasts (category b / 25%-50% glandular t issue). There is an oval focal asymmetry in the right breast at 6 o'clock middle depth. This is not signific antly changed. No other significant masses, calcifications, or other findings are seen in either breast. IMPRESSION: INCOMPLETE: NEEDS ADDITIONAL IMAGING EVALUATION The oval focal asymmetry in the right breast is indeterminate. An ultrasound is recommended. Based on the Tyrer Cuzick model (a risk assessment model) the patient's lifetime risk is 6.9% and her 10 year risk is 5.7%. According to the ACR, ACS, and NCCN guidelines, an annual breast MRI exam willie g with mammogram is recommended if the patients lifetime risk is 20% or greater. This exam was interpreted at Station ID: [id number]. NOTE: For mammograms, a report in lay terms will be sent to the patient. Approximately 15% of breast malignancies will not be visualized mammographically. In the management of a palpable breast mass, a negative mammogram must not discourage biopsy of a clinically suspicious lesion. Electronically Signed By: Jim Dubois M.D. lc/:11/15/2023 13:58:03 ACR BI-RADS Category 0: Incomplete 3340F PARENCHYMAL PATTERN: (A) - The breast(s) demonstrate(s) scattered fibroglandular densities. BI-RADS CATEGORY: (0) - 0 Ultrasound [id number] Immediate follow-up LATERALITY: (B)
== END 2023-11-15 12:22 | disposition home or self-care (01) ==
LOC: DI 12:21
PROVIDERS: ATTEND Internal Medicine
DX: N63.15 Unspecified lump in the right breast, overlapping quadrants (principal); R92.323 Mammographic fibroglandular density, bilateral breasts